=== PATIENT | female | born 1945 | race African-American/Black ===

== ENCOUNTER 2024-08-04 09:10 | Outpatient (CLI) | payer MEDICARE, MEDICAID ==
[~2024-08-04 09:10] MED LIST: iohexol 300mg/ml 100ml inj. ONE
--- NOTE | 2024-08-04 11:38 | RADIOLOGY REPORT ---
Procedure: CT CT CHEST W/ IV CONTRAST 08/04/2024 09:22 AM History: ACUTE RESPIRATORY FAILURE, ASSISTED W HYPOXIA OR HYPER Comparison: None Technique: After the uneventful administration of contrast intravenously, CT imaging was performed th rough the chest. Coronal and sagittal reformations were performed by the technologist. 3D image postprocessing was performed on a dedicated workstation and images were used for interpretat ion and reporting. Radiation Dose : CT Dose: CTDI volume is 11.6 mGy. Dose-length product is 876.6 mGy*cm Findings: Lower neck: Tracheostomy in satisfactory position. Lungs: No focal consolidation. Dependent atelectasis. Heart/Vascular Structures: Cardiomegaly. Coronary artery calcifications. Vascular calcifications of t he aorta. Lymph Nodes: No adenopathy Pleura: Trace bilateral pleural effusions. Loculated fluid is present along the right major fissure measuring 3.5 cm. Loculated pleural fluid and small volume gas is present in the posterior right lower lobe measuring 6 .5 cm. Musculoskeletal: No acute osseous abnormality. Multiple chronic appearing right rib fractures. Soft tissues: Normal. Upper abdomen: Possible focal biliary dilation in the right hepatic dome, partially imaged. IMPRESSION: Loculated fluid is present along the right minor fissure measuring 3.5 cm. Loculated pleural fluid and small volume gas is present in the posterior right lower lobe measuring 6 .5 cm ; possibly infectious such as empyema. Clinical correlation advised. Possible focal biliary dilation in the right hepatic dome, partially imaged.
== END 2024-08-04 23:59 | disposition home or self-care (01) ==
LOC: RAD 09:10
PROVIDERS: ATTEND Internal Medicine
DX: S22.41XA Multiple fractures of ribs, right side, initial encounter for closed fracture (principal); J96.00 Acute respiratory failure, unspecified whether with hypoxia or hypercapnia; R04.2 Hemoptysis; I51.7 Cardiomegaly; I25.10 Atherosclerotic heart disease of native coronary artery without angina pectoris; Z93.0 Tracheostomy status; X58.XXXA Exposure to other specified factors, initial encounter; Y93.89 Activity, other specified; Y92.89 Other specified places as the place of occurrence of the external cause; Y99.8 Other external cause status
CPT/HCPCS: 71270; Q9967